=== PATIENT | male | born 1940 | race Native Hawaiian/Other Pacific Islander ===

== ENCOUNTER 2022-09-13 08:11 | Emergency (ER) | payer OTHER ==
[~2022-09-13] VITALS: Ht 185.4 cm; Wt 88.5 kg
[2022-09-13 08:11] VITALS: BP 148/74; TEMP 97.8
[2022-09-13 08:49] LABS: POTASSIUM 3.7 mmol/L (3.6-5.2); SODIUM 138 mmol/L (136-145)
[2022-09-13 08:51] LABS: PARTIAL THROMBOPLASTIN TIME 24.3 SECONDS (23.9-36.7)
[2022-09-13 08:57] LABS: PLATELET COUNT 139 K/uL (142-355)
== END 2022-09-13 10:27 | disposition home or self-care (01) ==
LOC: ED 08:11
PROVIDERS: Emergency Medicine
DX: K21.9 Gastro-esophageal reflux disease without esophagitis (principal)
CPT/HCPCS: 80053; 82550; 83880; 84484; 85027; 85379; 85610; 85730; 93005; 99283

== ENCOUNTER 2022-09-15 05:10 | Emergency (ER) | payer OTHER ==
[~2022-09-15] VITALS: Ht 185.4 cm; Wt 82.6 kg
[2022-09-15 05:15] VITALS: TEMP 98.5
[2022-09-15 05:39] LABS: PLATELET COUNT 195 K/uL (142-355)
[2022-09-15 05:48] LABS: POTASSIUM 3.5 mmol/L (3.6-5.2)
[2022-09-15 07:00] VITALS: BP 18/71
== END 2022-09-15 07:41 | disposition home or self-care (01) ==
LOC: ED 05:10
PROVIDERS: Emergency Medicine
DX: R00.0 Tachycardia, unspecified (principal); G20 Parkinson's disease; E11.65 Type 2 diabetes mellitus with hyperglycemia; N40.0 Benign prostatic hyperplasia without lower urinary tract symptoms; F10.90 Alcohol use, unspecified, uncomplicated; Z79.84 Long term (current) use of oral hypoglycemic drugs
CPT/HCPCS: 80053; 81002; 82550; 83880; 84484; 85027; 93005; 96360; 99284

== ENCOUNTER 2022-09-18 10:07 | Outpatient (CLI) | payer OTHER | END 2022-09-18 21:02 | LOC: RAD 10:07 | PROVIDERS: ATTEND Internal Medicine | DX: R42 Dizziness and giddiness (principal); R29.6 Repeated falls ==